=== PATIENT | male | born 1950 | race Caucasian/White ===

== ENCOUNTER 2018-03-11 08:36 | Inpatient (IN) | payer BC ==
[~2018-03-11] VITALS: Ht 170.2 cm; Wt 82.1 kg
[2018-03-11] VITALS (24 sets, daily range): BP systolic 111–149; BP diastolic 56–85; PULSE 68–113; RESP 14–24; Ht 170.2 cm; Wt 82.1 kg
--- NOTE | 2018-03-11 05:59 | HPN ---
Date/Time of Note Date/Time of Note DATE: 03/11/18 TIME: 05:59 Interval H&P Admission Note Pt. seen H&P reviewed: No system changes VERA ESPIONZA MD Mar 11, 2018 05:59
--- NOTE | 2018-03-11 06:02 | OPR ---
Date/Time of Note Date/Time of Note DATE: 03/11/18 TIME: 05:59 Operative Report Procedure Date: Mar 11, 2018 Preoperative Diagnosis Right shoulder severe arthritis Postoperative Diagnosis 1. Right shoulder primary glenohumeral arthritis 2. Right shoulder acromioclavicular joint primary arthritis Operation/Procedure Performed 1. Right open total shoulder replacement 2. Right open distal clavicle excision 3. Right shoulder PRP infiltration and medullary canal Surgeon see signature line Printed Forms Proofreader Rivera Jacob DO Second Printed Forms Proofreader: MERY GIRALDO PA-C Anesthesia Type: general Estimated Blood Loss: 150 - 200 ml's Transfusion none Specimen None Grafts/Implants See op note Complications none Pt Condition Post Procedure: stable Disposition: PACU Procedure Description FOOD PREP WORKER SURGEON: Rivera Jacob DO was asked to be present for this case at my request. Assistance was necessary as a result of the highly technical nature of this operation. When performing an open total shoulder replacement, it is critical to have a trained embalmer assistant who is an expert in handling the extremity and assisting the surgeon in tasks such as suture management and knot- tying techniques as well as implants. This assistance cannot be performed by a trim technician, as it is considered an integral part of the procedure and the embalmer assistant should be compensated for their time. PROCEDURE IN DETAIL: Following the administration of general anesthesia supplemented with a peripheral nerve block for postoperative pain control, the patient was examined under anesthesia. Examination of the right shoulder revealed severe stiffness and crepitus. The patient was then placed in the beach chair position. The right forearm was prepped and 60 cc of blood were drawn using a 60 cc syringe coated with anticoagulant. The blood was harvested from the patient and given to the human resources representative who prepared PRP concentrate.Sterile prep and drape was then undertaken. An extended deltopectoral incision was then carried through the interval exposing the conjoined tendon and retracting it medially. The superior aspect of the acromioclavicular joint was then visualized. The AC capsule was incised and the distal clavicle skeletonized for a distance of 10 mm. Severe arthritic changes were noted. The distal clavicle was then excised for a distance of 10 mm decompressing the joint. The joint was irrigated and the AC capsule closed using interrupted #2 sutures. Attention was then directed back to the deltopectoral interval. The subscapularis was incised and mobilized. Severe arthritic changes were noted with very large peripheral osteophytes. Multiple loose bodies were removed from the joint. The biceps tendon was identified and it had moderate fraying within the groove. The intra-articular portion was resected and the biceps was tenodesed to the bicipital groove with solid fixation using multiple #2 sutures. A humeral head osteotomy was then created in the appropriate degree of version and inclination. The humerus was retracted and the glenoid was exposed. Peripheral osteophytes were removed and a complete capsulectomy performed. The central canal of the glenoid was then entered and prepared for a size 44 mm Depuy anchor peg glenoid. A Depuy anchor peg glenoid was then cemented into position with solid fixation. The humerus was then reamed and prepared for a 14 million humeral component with a 48 x 15 mm humeral head. The actual components were implanted with solid fixation after the canal was irrigated and infiltrated with the PRP solution that was prepared. The subscapularis was reapproximated using #2 sutures that were passed circumferentially around the humerus with a watertight closure of the interval. The arm was taken through full range of motion with no evident instability. The joint was then thoroughly irrigated, the deep tissues were approximated using #1 suture followed by closure of the deep layer using 2-0 Monocryl. The skin was closed using 4-0 Monocryl suture, and a Prenio dressing. An Ultrasling was then applied. The patient was awakened and transported to the recovery room in stable condition. Estimated blood loss for this procedure was 150 cc. Radiographs will be obtained in the recovery room. VERA ESPINOZA MD Mar 11, 2018 06:02
[~2018-03-11 08:36] MED LIST: ALEN70TA5 PO; ASPI-781 PO; ATOR10TA65 PO; BUPIVACAINE 0.5% (SDV) 30 ML, morphine SULFATE (PF) 8 MG, EPINEPHrine 0.3 MG, KETOROLAC... IRR SCH; CALC500T12 PO; CEFAZOLIN 2 GM/50 ML (PMX) 50 ML IVPB ONE; DEXAMETHASONE 1 MG TAB PO ONE; GABAPENTIN 300 MG CAP PO ONE; HYDR-762 PO; MULTI PO; ONDA4TAB96 PO; PHENYLephrine (100 MCG/ML) 10ML SYG ONE; SERT100T PO; SEVOFLURANE 15 MIN ONE; TEMA15CA6 PO; TRANEXAMIC ACID 1,000 MG in DEXTROSE 5% 100 ML IVPB ONE; [UNRECOGNIZED DRUG - CODE] PO
[2018-03-11] MEDS ORDERED: ATOR20TA38 PO (09:20)
[2018-03-11] MEDS ORDERED: SERT-165 PO (09:22)
[2018-03-11] MEDS ORDERED: AMLO-350 PO (09:22)
[2018-03-11] MEDS ORDERED: ROPIVACAINE 0.5 % 30 ML VIAL ONE (10:05)
[2018-03-11] MEDS ORDERED: ROCURONIUM 50 MG INJ ONE (10:05)
[2018-03-11] MEDS ORDERED: MIDAZOLAM 1 MG/ML 2 ML INJ ONE (10:05)
[2018-03-11] MEDS ORDERED: PROPOFOL 20 ML ONE (10:05)
[2018-03-11] MEDS ORDERED: CEFAZOLIN 1 GM INJ ONE (10:05)
[2018-03-11] MEDS ORDERED: CA CHLORIDE 10% 10 ML SYRINGE ONE (10:43)
[2018-03-11] MEDS ORDERED: THROMBIN 5000 UNIT VIAL ONE (10:43)
[2018-03-11] MEDS ORDERED: POLYMYXIN/BACITRACIN 1L IRRIG ONE (10:43)
[2018-03-11] MEDS ORDERED: BUPIVACAINE 0.5%/EPI (SDV) 30 ML INJ ONE (10:43)
--- NOTE | 2018-03-11 10:53 | PREAC ---
Date/Time of Note Date/Time of Note DATE: 03/11/18 TIME: 10:51 Anesthesia Eval and Record Evaluation Time Pre-Procedure Interview DATE: 03/11/18 TIME: 10:51 Age 67 Sex male NPO: 8 hrs Preoperative diagnosis Right Shoulder OA Planned procedure Right Total Shoulder Replacement Past Medical History Past Medical History: Includes Cardio: HTN, Dyslipidemia Musculoskeletal: Osteoarthritis Surgery & Anesthesia Issues No known issue Meds Anticoagulation: No Beta Telma within 24 hr: No Reason Beta Telma not given: Pt. not on B-Telma Reported Medications Sertraline Hcl* (Sertraline Hcl*) 100 Mg Tablet, 100 MG PO DAILY, #30 TAB 03/11/18 Amlodipine/Valsartan (Amlodipine-Valsartan 5-160 mg) 1 Each Tablet, 1 TAB PO DAILY, #30 TAB 03/11/18 Atorvastatin Calcium* (Atorvastatin Calcium*) 20 Mg Tablet, 20 MG PO QHS, #30 TAB 03/11/18 Discontinued Reported Medications Yvkoliaokq-[id number]-[id number] (Exforge HCT) 5-160-25 Mg Tab, 1 EACH PO DAILY, TAB 06/27/14 Calcium Carbonate* (Oysco-500*) 1 Tab Tablet, 1 TAB PO DAILY, TAB 02/25/14 Multivitamins* (Theragran*) 1 Tab Tab, 1 TAB PO DAILY, TAB 02/25/14 Alendronate Sodium* (Fosamax*) 70 Mg Tablet, 70 MG PO Q7D for ON THURSDAY, TAB 02/25/14 Atorvastatin Calcium (Atorvastatin Calcium) 10 Mg Tab, 20 MG PO HS, TAB 02/25/14 Discontinued Scripts Ondansetron Hcl* (Ondansetron Hcl*) 4 mg -ODT Tab.disper, 4 MG PO Q4H PRN for NAUSEA AND OR VOMITING, #20 TAB 1 Refill Prov:CHIOMA HUTSON MD 07/01/14 Aspirin* (Ecotrin*) 325 Mg Tabec, 325 MG PO BID for 21 Days, 0 Refills Prov:CHIOMA HUTSON MD 07/01/14 Temazepam* (Restoril*) 15 Mg Capsule, 15 MG PO HS PRN for INSOMNIA, #30 CAP 0 Refills Prov:CHIOMA HUTSON MD 07/01/14 Hydrocodone Bit-Acetaminophen* ([place]*) 10-325 Mg Tablet, 1 TAB PO Q4H PRN for PAIN, #120 TAB 0 Refills Prov:CHIOMA HUTSON MD 07/01/14 Sertraline Hcl* (Zoloft*) 100 Mg Tab, 100 MG PO DAILY, #30 5 Refills Prov:CHIOMA HUTSON MD 07/01/14 Current Medications Bupivacaine HCl/ Morphine Sulfate/ Epinephrine/ Ketorolac Tromethamine/ Clonidine/Sodium Chloride/ Vancomycin HCl INTRA-OP IRR ; Start 03/11/18 at 06:30; Stop 03/11/18 at 16:00 Meds reviewed: Yes Allergies Coded Allergies: No Known Allergy (Unverified , 03/11/18) Allergies Reviewed: Yes Labs/Studies Labs Reviewed: Reviewed by anesthesiologist test: N/A Studies: ECG (n/a), CXR (n/a) Pre-procedure Exam Last vitals Vital Signs Date Temp Pulse Resp B/P (MAP) Pulse Ox O2 O2 Flow FiO2 Time Delivery Rate 03/11/18 97.5 68 16 119/65 97 Room Air 09:52 (83) Airway: Adequate mouth opening, Adequate thyromental dist Mallampati: Mallampati II Teeth: Normal Lung: Normal Heart: Normal ASA Physical Status ASA physical status: 2 Emergency: None Planned Anesthetic General/MAC: ETT Nerve block: Brachial plexus (right) Planned Pain Management Single shot nerve block, Parenteral pain med Pre-operative Attestations Prior to commencing anesthesia and surgery, the patient was re-evaluated, there was verification of: *The patient's identity *The results of appropriate recent lab work and preoperative vital signs *The above evaluation not changing prior to induction *Anesthetic plan, risk benefits, alternative and complications discussed with patient/family; questions answered; patient/family understands, accepts and wishes to proceed. MIKE DORSEY MD Mar 11, 2018 10:53
[2018-03-11] MEDS ORDERED: MEPERIDINE 25 MG INJ IV PRN (11:00)
[2018-03-11] MEDS ORDERED: hydrALAzine 20 MG INJ IV PRN (11:00)
[2018-03-11] MEDS ORDERED: HYDROmorphONE 1 MG/5 ML IV SYRINGE IV PRN ×3 (11:00)
[2018-03-11] MEDS ORDERED: LABETALOL HCL 20MG INJ IV PRN (11:00)
[2018-03-11] MEDS ORDERED: OXYCODONE/ACETAMINOPHEN (5/325) TAB PO PRN ×2 (11:00)
[2018-03-11] MEDS ORDERED: EPHEDrine SULFATE 50 MG/5 ML SYG IV PRN (11:00)
[2018-03-11] MEDS ORDERED: DIPHENHYDRAMINE 50 MG INJ IV PRN ×2 (11:00→13:30)
[2018-03-11] MEDS ORDERED: FENTAnyl 50 MCG/ML VIAL IV PRN ×3 (11:00)
[2018-03-11] MEDS ORDERED: ONDANSETRON 4 MG INJ IV PRN ×2 (11:00→13:30)
[2018-03-11] MEDS ORDERED: METOCLOPRAMIDE 10 MG INJ IV PRN (11:00)
[2018-03-11] MEDS ORDERED: METOCLOPRAMIDE 10 MG INJ ONE (11:49)
[2018-03-11] MEDS ORDERED: ONDANSETRON 4 MG INJ ONE (11:49)
[2018-03-11] MEDS ORDERED: KETOROLAC 30 MG INJ ONE (11:50)
[2018-03-11] MEDS ORDERED: DEXAMETHASONE 4 MG/ML 5 ML INJ ONE (11:50)
[2018-03-11] MEDS ORDERED: POLYMYXIN/BACITRACIN 1L IRRIG IRR ONE (12:06)
[2018-03-11] MEDS ORDERED: NEOSTIGMINE 3 MG/3 ML SYRINGE ONE (12:28)
[2018-03-11] MEDS ORDERED: GLYCOPYRROLATE 0.4 MG INJ ONE (12:28)
[2018-03-11] MEDS ORDERED: ZOLPIDEM 5 MG TAB PO PRN (13:30)
[2018-03-11] MEDS ORDERED: LOPERAMIDE 2 MG CAP PO PRN (13:30)
[2018-03-11] MEDS ORDERED: KETOROLAC 15 MG INJ IV PRN (13:30)
[2018-03-11] MEDS ORDERED: NACL 0.9% 3 ML SYG IV SCH (13:30)
[2018-03-11] MEDS ORDERED: oxyCODONE 5 MG TAB PO PRN ×2 (13:30)
[2018-03-11] MEDS ORDERED: MAGNESIUM HYDROXIDE 30ML CUP PO PRN (13:30)
[2018-03-11] MEDS ORDERED: TRANEXAMIC ACID 1,000 MG in SOD CHLORIDE 0.9% 100 ML IVPB SCH (13:30)
--- NOTE | 2018-03-11 13:46 | PAC ---
Date/Time of Note Date/Time of Note DATE: 03/11/18 TIME: 13:46 Post-Anesthesia Notes Post-Anesthesia Note Last documented vital signs Vital Signs Date Temp Pulse Resp B/P (MAP) Pulse Ox O2 O2 Flow FiO2 Time Delivery Rate 03/11/18 97.5 68 16 119/65 97 Room Air 13:52 (83) Activity: WNL Respiratory function: WNL Cardiovascular function: WNL Mental status: Baseline Pain reasonably controlled: Yes Hydration appropriate: Yes Nausea/Vomiting absent: Yes MIKE DORSEY MD Mar 11, 2018 13:46
[2018-03-11] MEDS: CEFAZOLIN 1 GM/50 ML (PMX) 50 ML IVPB SCH ×2 (13:54→22:25)
[2018-03-11] MEDS ORDERED: ALBUTEROL 0.083% (NEB) 2.5 MG/3 ML AMP HHN STA (14:16)
[2018-03-11] MEDS: DEXAMETHASONE 2 MG TAB PO SCH ×2 (18:37→23:48)
[2018-03-11] MEDS: ACETAMINOPHEN 500 MG TAB PO SCH ×2 (18:37→23:48)
[2018-03-11] MEDS: SENNA/DOCUSATE NA (8.6MG/50MG) TAB PO SCH (20:09)
[2018-03-11] MEDS: HYDROmorphONE 1 MG/ML SYG IV PRN (20:09)
[2018-03-11] MEDS ORDERED: ATORVASTATIN 20 MG TAB PO SCH (21:00)
[2018-03-11] MEDS ORDERED: GABAPENTIN 300 MG CAP PO SCH (21:00)
[2018-03-11] MEDS: oxyCODONE 5 MG TAB PO PRN (22:31)
[2018-03-12 00:15] VITALS: BP 125/65; PULSE 79; RESP 20
[2018-03-12] MEDS: HYDROmorphONE 1 MG/ML SYG IV PRN ×2 (02:18→08:10)
--- NOTE | 2018-03-12 06:05 | PDOCDIS ---
Discharge Instructions DIAGNOSIS Discharge Diagnosis Shoulder arthritis CONDITION [id number] Patient Condition: [id number] Good HOME CARE INSTRUCTIONS: [id number] Diet Instructions: [id number] Regular ACTIVITY: [id number] Activity Restrictions: [id number] Slowly Increase Activity Keep Limb Elevated [id number] Bathing Restrictions: Uurna5h Shower FOLLOW UP/APPOINTMENTS Follow-up Plan 2 weeks SCHOOL/WORK RELEASE May return to School/Work with: With Restrictions School/Work Release Comment: 5 pound tabletop usage for 1 month VERA ESPINOZA MD Mar 12, 2018 06:05
--- NOTE | 2018-03-12 06:05 | DS ---
Date/Time of Note Date/Time of Note DATE: 03/12/18 TIME: 06:05 Discharge Summary Admission/Discharge Info Admit Date/Time Mar 11, 2018 at 08:36 Discharge Date/Time March 12, 2018 Discharge Diagnosis Shoulder arthritis Hospital Course Admitted and underwent uncomplicated procedure. Postop day 1 discharge home after therapy Home Meds Reported Medications Sertraline Hcl* (Sertraline Hcl*) 100 Mg Tablet, 100 MG PO DAILY, #30 TAB 03/11/18 Amlodipine/Valsartan (Amlodipine-Valsartan 5-160 mg) 1 Each Tablet, 1 TAB PO DAILY, #30 TAB 03/11/18 Atorvastatin Calcium* (Atorvastatin Calcium*) 20 Mg Tablet, 20 MG PO QHS, #30 TAB 03/11/18 Discontinued Reported Medications Tanluqmmso-Rccdfmhqn-HYCR (Exforge HCT) 5-160-25 Mg Tab, 1 EACH PO DAILY, TAB 06/27/14 Calcium Carbonate* (Oysco-500*) 1 Tab Tablet, 1 TAB PO DAILY, TAB 02/25/14 Multivitamins* (Theragran*) 1 Tab Tab, 1 TAB PO DAILY, TAB 02/25/14 Alendronate Sodium* (Fosamax*) 70 Mg Tablet, 70 MG PO Q7D for ON THURSDAY, TAB 02/25/14 Atorvastatin Calcium (Atorvastatin Calcium) 10 Mg Tab, 20 MG PO HS, TAB 02/25/14 Discontinued Scripts Ondansetron Hcl* (Ondansetron Hcl*) 4 mg -ODT Tab.disper, 4 MG PO Q4H PRN for NAUSEA AND OR VOMITING, #20 TAB 1 Refill Prov:CHIOMA HUTSON MD 07/01/14 Aspirin* (Ecotrin*) 325 Mg Tabec, 325 MG PO BID for 21 Days, 0 Refills Prov:CHIOMA HUTSON MD 07/01/14 Temazepam* (Restoril*) 15 Mg Capsule, 15 MG PO HS PRN for INSOMNIA, #30 CAP 0 Refills Prov:CHIOMA HUTSON MD 07/01/14 Hydrocodone Bit-Acetaminophen* ([place]*) 10-325 Mg Tablet, 1 TAB PO Q4H PRN for PAIN, #120 TAB 0 Refills Prov:CHIOMA HUTSON MD 07/01/14 Sertraline Hcl* (Zoloft*) 100 Mg Tab, 100 MG PO DAILY, #30 5 Refills Prov:CHIOMA HUTSON MD 07/01/14 Follow-up Plan 2 weeks Primary Care Provider MD OLGA Holland CARLOS A MD Mar 12, 2018 06:05
--- NOTE | 2018-03-12 06:05 | PN ---
Date/Time of Note Date/Time of Note DATE: 03/12/18 TIME: 06:04 Subjective Awake and alert. Minimal pain. Objective Vitals Vital Signs Date Temp Pulse Resp B/P (MAP) Pulse Ox O2 O2 Flow FiO2 Time Delivery Rate 03/12/18 97.4 79 20 125/65 93 Nasal 00:15 (85) Cannula 03/11/18 2.0 18:00 Intake and Output 03/11/18 03/11/18 03/12/18 1515:00 23:00 07:00 IntakeIntake Total 1560 ml 510 ml OutputOutput Total 50 ml 100 ml 800 ml BalanceBalance 1510 ml 410 ml -800 ml Wound clean and dry. Neurologically intact. No signs of DVT. Medications Medications Current Medications Atorvastatin Calcium (Lipitor) 20 mg QHS PO Last administered on 03/11/18at 20:09; Admin Dose 20 MG; Start 03/11/18 at 21:00 Sertraline HCl (Zoloft) 100 mg DAILY PO ; Start 03/12/18 at 09:00 Cefazolin Sodium 50 ml @ 100 mls/hr Q8H IVPB Last administered on 03/11/18at 22:25; Admin Dose 100 MLS/HR; Start 03/11/18 at 14:00; Stop 03/12/18 at 06:29 Senna/Docusate Sodium (Senokot-S) 1 tab BID PO Last administered on 03/11/18at 20:09; Admin Dose 1 TAB; Start 03/11/18 at 21:00 Simethicone (Mylicon) 80 mg TID PRN PO DISTENSION/GAS/BLOATING; Start 03/11/18 at 13:30 Magnesium Hydroxide (Milk Of Mag) 30 ml BID PRN PO CONSTIPATION; Start 03/11/18 at 13:30 Loperamide HCl (Imodium Cap) 2 mg Q6H PRN PO DIARRHEA; Start 03/11/18 at 13:30 Dexamethasone (Decadron) 2 mg Q6 PO Last administered on 03/11/18at 23:48; Admin Dose 2 MG; Start 03/11/18 at 18:00; Stop 03/12/18 at 12:01 Gabapentin (Neurontin) 300 mg HS PO Last administered on 03/11/18at 20:09; Admin Dose 300 MG; Start 03/11/18 at 21:00 Acetaminophen (Tylenol Tab) 500 mg Q6 PO Last administered on 03/11/18at 23:48; Admin Dose 500 MG; Start 03/11/18 at 18:00 Oxycodone HCl (Roxicodone) 15 mg Q4H PRN PO PAIN Last administered on 03/11/18at 22:31; Admin Dose 15 MG; Start 03/11/18 at 13:30 Oxycodone HCl (Roxicodone) 10 mg Q4H PRN PO PAIN Last administered on 03/11/18at 18:37; Admin Dose 10 MG; Start 03/11/18 at 13:30 Oxycodone HCl (Roxicodone) 5 mg Q4H PRN PO PAIN; Start 03/11/18 at 13:30 Hydromorphone HCl (Dilaudid) 1 mg Q4H PRN IV BREAKTHROUGH PAIN Last administered on 03/12/18at 02:18; Admin Dose 1 MG; Start 03/11/18 at 13:30 Ketorolac Tromethamine (Toradol) 15 mg Q6H PRN IV PAIN; Start 03/11/18 at 13:30 Ondansetron HCl (Zofran Inj) 4 mg Q6H PRN IV NAUSEA AND/OR VOMITING; Start 03/11/18 at 13:30 Diphenhydramine HCl (Benadryl) 25 mg Q6H PRN IV PRURITUS; Start 03/11/18 at 13:30 Zolpidem Tartrate (Ambien) 10 mg HS PRN PO INSOMNIA Last administered on 03/11/18at 23:44; Admin Dose 10 MG; Start 03/11/18 at 13:30 IV Flush (NS 3 ml) 3 ml per protocol IV ; Start 03/11/18 at 13:30 VTE Prophylaxis Risk score (from Nsg)>0 risk: 3 SCD applied (from Nsg): Yes Lines/Catheters IV Catheter Type: Saline Lock Rios in Place: No Assessment/Plan Assessment/Plan Assessment: Status post total shoulder Plan: PT this morning then discharge home VERA ESPINOZA MD Mar 12, 2018 06:05
[2018-03-12] MEDS: DEXAMETHASONE 2 MG TAB PO SCH (06:11)
[2018-03-12] MEDS: ACETAMINOPHEN 500 MG TAB PO SCH (06:11)
[2018-03-12] MEDS: CEFAZOLIN 1 GM/50 ML (PMX) 50 ML IVPB SCH (06:11)
[2018-03-12] MEDS: oxyCODONE 5 MG TAB PO PRN ×2 (06:19→10:17)
[2018-03-12] MEDS: SENNA/DOCUSATE NA (8.6MG/50MG) TAB PO SCH (08:07)
[2018-03-12 08:08] VITALS: BP 109/64; PULSE 78; RESP 18
[2018-03-12] MEDS ORDERED: SERTRALINE 100 MG TAB PO SCH (09:00)
== END 2018-03-12 10:20 | disposition home or self-care (01) | DRG 483 ==
LOC: REC 08:36 → MS1 18:17
PROVIDERS: ADMIT Orthopaedic Surgery; ATTEND Orthopaedic Surgery
PROC: 0PB90ZZ Excision of Right Clavicle, Open Approach (ICD-10-PCS; 2018-03-11)
PROC: 0RRJ0JZ Replacement of Right Shoulder Joint with Synthetic Substitute, Open Approach (ICD-10-PCS; principal; 2018-03-11 10:30)
DX: M13.811 Other specified arthritis, right shoulder (principal)
CPT/HCPCS: 86999; 88304; 88311; 94664; 97167; C1713; C1776; J0171; J0690; J0735; J1100; J1170; J1200; J1885; J2175; J2250; J2274; J2370; J2405; J2710; J2765; J2795; J3010; J3370